=== PATIENT | male | born 1970 | race American Indian/Alaskan Native ===

== ENCOUNTER 2017-05-31 17:12 | Emergency (ER) | payer SELFPAY ==
[2017-05-31] MEDS ORDERED: Sodium Chloride 0.9% 1,000 ML IV ONE (17:46)
[2017-05-31] MEDS ORDERED: Iohexol 240 (50 ml) PO STA (17:46)
[2017-05-31] MEDS ORDERED: Sodium Chloride 0.9% 1,000 ML ONE (18:08)
[2017-05-31] MEDS ORDERED: Iohexol 240 (50 ml) ONE (18:08)
--- NOTE | 2017-05-31 18:14 | C.PDOC ---
History Of Present Illness 47 y/o male c/o intermittent abdominal pain for the last year. Pain is constant , daily that has been worse over the last week. Patient reports that the pain is "bad" today where it is localized to the epigastric region associated with bloating and radiates to the back. Patient's significant other has a hx of gastritis and admits to sharing her meds with the patient, but with no relief. Patient reports soft, green stool and subjective fever. Lying down the patient appears comfortable, but notes the pain is worse when sitting up. Patient notes taking Pepto Bismol. Denies nausea, vomiting, or diarrhea. No chest pain, SOB, or palpitations. Time Seen by Provider: 05/31/17 17:38 Chief Complaint (Nursing): Abdominal Pain History Per: Patient History/Exam Limitations: no limitations Onset/Duration Of Symptoms: Days (Past year), Intermittent Episodes, Persistent Current Symptoms Are (Timing): Still Present Severity: Mild Location Of Pain/Discomfort: Epigastric Radiation Of Pain To:: Back Quality Of Discomfort: "Pain" Associated Symptoms: Fever (Subjective) Last Bowel Movement: Yesterday Additional History Per: Patient Past Medical History Reviewed: Historical Data, Nursing Documentation, Vital Signs Vital Signs: Last Vital Signs Temp 99.5 F 05/31/17 19:47 Pulse 68 05/31/17 19:47 Resp 17 05/31/17 19:47 BP 174/93 H 05/31/17 19:47 Pulse Ox 100 05/31/17 21:45 Family History: States: Unknown Family Hx - Social History Hx Alcohol Use: Yes Hx Substance Use: Yes - Immunization History Hx Tetanus Toxoid Vaccination: No Hx Influenza Vaccination: No Hx Pneumococcal Vaccination: No Review Of Systems Except As Marked, All Systems Reviewed And Found Negative. Constitutional: Positive for: Fever (Subjective) Gastrointestinal: Positive for: Abdominal Pain, Other (Bloating. Greenish, soft stool). Negative for: Nausea, Vomiting, Diarrhea Physical Exam - Physical Exam Appears: Non-toxic, No Acute Distress Skin: Warm, Dry Head: Atraumatic, Normacephalic Oral Mucosa: Moist Chest: Symmetrical Cardiovascular: Rhythm Regular, No Murmur Respiratory: Normal Breath Sounds, No Rales, No Rhonchi, No Wheezing Gastrointestinal/Abdominal: Soft, No Tenderness, No Guarding, No Rebound Back: No CVA Tenderness Neurological/Psych: Oriented x3 ED Course And Treatment - Laboratory Results Result Diagrams: 05/31/17 18:33 05/31/17 18:33 Lab Interpretation: Normal O2 Sat by Pulse Oximetry: 100 (RA) Pulse Ox Interpretation: Normal - CT Scan/US Abdomen w/contrast Other Rad Studies (CT/US): Interpreted By Me, Read By Radiologist CT/US Interpretation: EXAM: CT Abdomen and Pelvis With Intravenous Contrast. EXAM DATE/TIME: 05/31/2017 5:46 PM. CLINICAL HISTORY: 47 years old, male; Pain ; Abdominal pain; Flank; Upper; Additional info: Abd pain. TECHNIQUE: Axial computed tomography images of the abdomen and pelvis with intravenous contrast. All CT. scans at this facility use one or more dose reduction techniques, viz. : automated exposure control;. ma/kV adjustment per patient size (including targeted exams where dose is matched to indication; i.e. head); or iterative reconstruction technique. Coronal and sagittal reformatted images were created and reviewed. CONTRAST: 100 mL of OMNIPAQUE 300 administered intravenously. COMPARISON: There are no prior studies for comparison. FINDINGS: Lower thorax : Heart size is normal. There is a small hiatal hernia. There is a 7 mm right lower lobe. nodule. There is a 5 mm right lower lobe nodule. There is a 12.2 mm left lower lobe nodule. There are. multiple smaller additional pleural- based nodular opacities. There is no focal infiltrate. There is linear. scarring. There are no effusions. ABDOMEN: Liver: There is fatty infiltration of the liver. Gallbladder and bile ducts: unremarkable. Pancreas: Pancreas is mildly atrophic. Spleen: unremarkable. Adrenals: There is nodular thickening of the adrenals. Kidneys and ureters: There is focal right renal scarring. Kidneys and ureters are otherwise. unremarkable. Stomach and bowel: Stomach is incompletely distended. Rotation is normal. There are mildly dilated. small bowel loops in the upper abdomen. There is no small bowel obstruction. Terminal ileum is. unremarkable. There is mild prominence of the appendix. There is no pericecal inflammatory change. Colon is incompletely distended which limits evaluation. Appendix: See above. PELVIS: Bladder: unremarkable. Reproductive : Seminal vesicles and prostate are unremarkable. ABDOMEN and PELVIS: Intraperitoneal space: There is no free air or free fluid. Bones/joints: There are degenerative changes in the osseus structures. Soft tissues: There are focal atrophic changes in both rectus muscles. Vasculature: There are vascular calcifications. Lymph nodes: There is no pathologic adenopathy. IMPRESSION: Multiple small bilateral pulmonary nodules largest in the left lower lobe,. infectious/inflammatory versus neoplastic; fatty liver, no acute solid visceral abnormality; focal ileus,. no obstruction; mild prominence of the appendix but no periappendiceal inflammatory change. Additional findings as described above. Footer: As per Fleischner Society guidelines for follow-up and management of pulmonary nodules: Recommend initial follow-up chest CT at 3, 9 and 24 months. Consider contrast enhanced chest CT,. PET scan and/or biopsy as clinically warranted Reevaluation Time: 21:51 Reassessment Condition: Improved (Patient is in no acute distress at this time.) Medical Decision Making Medical Decision Making: Plans: * CT Abd/pel w/ * Blood labs * Pepcid * Omnipaque * Protonix * IV fluids * UA Disposition Counseled Patient/Family Regarding: Studies Performed, Diagnosis, Need For Followup, Rx Given - Disposition Referrals: [facility] [Outside] Disposition: HOME/ ROUTINE Disposition Time: 21:51 Condition: STABLE Prescriptions: Pantoprazole Sodium [Protonix] 40 mg PO DAILY #20 ect Instructions: Abdominal Pain (ED), Gas and Bloating (ED), Pulmonary Nodules (ED ) Forms: [employer] ([place]) - Clinical Impression Clinical Impression: Abdominal pain, Pulmonary nodules/lesions, multiple - Scribe Statement The provider has reviewed the documentation as recorded by the Scribe Eula tovar All medical record entries made by the Scribe were at my direction and personally dictated by me. I have reviewed the chart and agree that the record accurately reflects my personal performance of the history, physical exam, medical decision making, and the department course for this patient. I have also personally directed, reviewed, and agree with the discharge instructions and disposition.
[2017-05-31 18:39] LABS: BASO # 0.1 K/uL (0.0-0.2); EOS % 0.7 % (0.0-4.0); HEMATOCRIT 47.7 % (35.0-51.0); LYMPH # 1.9 K/uL (1.0-4.3); LYMPH % 31.1 % (20.0-40.0); MEAN CELL VOLUME 93.5 fL (80.0-94.0); MEAN CORPUSCULAR HEMOGLOBIN 31.3 pg (27.0-31.0); MEAN CORPUSCULAR HGB CONC 33.5 g/dL (33.0-37.0); MEAN PLATELET VOLUME 10.8 fL (7.2-11.7); MONO # 0.5 K/uL (0.0-0.8); MONO % 8.7 % (0.0-10.0); RED CELL DISTRIBUTION WIDTH 13.4 % (11.5-14.5); WHITE BLOOD COUNT 6.2 K/uL (4.8-10.8)
[2017-05-31 18:46] LABS: CHLORIDE 99 mmol/L (98-107)
[2017-05-31 18:47] LABS: POTASSIUM 3.8 mmol/L (3.6-5.2); SODIUM 135 mmol/L (132-148)
[2017-05-31 18:49] LABS: BILIRUBIN,TOTAL 1.2 mg/dL (0.2-1.3); CARBON DIOXIDE 24 mmol/L (22-30); GFR AFRICAN-AMERICAN > 60
[2017-05-31 18:50] LABS: ALB/GLOB RATIO 1.5 (1.0-2.1); ALKALINE PHOSPHATASE 92 U/L (38-126); ALT/SGPT 33 U/L (21-72); AST/SGOT 19 U/L (17-59); BLOOD UREA NITROGEN 16 mg/dL (9-20); CALCIUM 9.3 mg/dl (8.6-10.4); GLUCOSE,RANDOM 83 mg/dL (75-110); TOTAL PROTEIN 7.4 g/dL (6.3-8.3)
[2017-05-31 19:58] LABS: RBC URINE 5 /hpf (0-3); URINE BILIRUBIN NEGATIVE (NEGATIVE); URINE BLOOD 1+ (NEGATIVE); URINE COLOR Yellow (YELLOW); URINE GLUCOSE (UA) NORMAL (Normal); URINE KETONE NEGATIVE (NEGATIVE); URINE LEUKOCYTE ESTERASE 1+ Leu/uL (Negative); URINE PROTEIN NEGATIVE (NEGATIVE); URINE UROBILINOGEN NORMAL mg/dL (0.2-1.0); WBC URINE 9 /hpf (0-5)
[2017-05-31] MEDS ORDERED: Iohexol 300 100 ML IJ ONE (20:35)
--- NOTE | 2017-05-31 21:36 | CT ---
EXAM: CT Abdomen and Pelvis With Intravenous Contrast EXAM DATE/TIME: 05/31/2017 5:46 PM CLINICAL HISTORY: 47 years old, male; Pain; Abdominal pain; Flank; Upper; Additional info: Abd pain TECHNIQUE: Axial computed tomography images of the abdomen and pelvis with intravenous contrast. All CT scans at this facility use one or more dose reduction techniques, viz.: automated exposure control; ma/kV adjustment per patient size (including targeted exams where dose is matched to indication; i.e. head); or iterative reconstruction technique. Coronal and sagittal reformatted images were created and reviewed. CONTRAST: 100 mL of OMNIPAQUE 300 administered intravenously. COMPARISON: There are no prior studies for comparison. FINDINGS: Lower thorax: Heart size is normal. There is a small hiatal hernia. There is a 7 mm right lower lobe nodule. There is a 5 mm right lower lobe nodule. There is a 12.2 mm left lower lobe nodule. There are multiple smaller additional pleural-based nodular opacities. There is no focal infiltrate. There is linear scarring. There are no effusions ABDOMEN: Liver: There is fatty infiltration of the liver. Gallbladder and bile ducts: unremarkable Pancreas: Pancreas is mildly atrophic. Spleen: unremarkable Adrenals: There is nodular thickening of the adrenals. Kidneys and ureters: There is focal right renal scarring. Kidneys and ureters are otherwise unremarkable. Stomach and bowel: Stomach is incompletely distended. Rotation is normal. There are mildly dilated small bowel loops in the upper abdomen. There is no small bowel obstruction. Terminal ileum is unremarkable. There is mild prominence of the appendix. There is no pericecal inflammatory change. Colon is incompletely distended which limits evaluation. Appendix: See above. PELVIS: Bladder: unremarkable Reproductive: Seminal vesicles and prostate are unremarkable. ABDOMEN and PELVIS: Intraperitoneal space: There is no free air or free fluid. Bones/joints: There are degenerative changes in the osseus structures. Soft tissues: There are focal atrophic changes in both rectus muscles. Vasculature: There are vascular calcifications. Lymph nodes: There is no pathologic adenopathy. IMPRESSION: Multiple small bilateral pulmonary nodules largest in the left lower lobe, infectious/inflammatory versus neoplastic; fatty liver, no acute solid visceral abnormality; focal ileus, no obstruction; mild prominence of the appendix but no periappendiceal inflammatory change Additional findings as described above. Footer: As per Fleischner Society guidelines for follow-up and management of pulmonary nodules: Recommend initial follow-up chest CT at 3, 9 and 24 months. Consider contrast enhanced chest CT, PET scan and/or biopsy as clinically warranted.
[2017-05-31 21:57] VITALS: TEMP 98.2
[2017-05-31 22:08] VITALS: O2SAT 99
[2017-05-31 23:09] VITALS: BP 170/101; PULSE 90; RESP 17
== END 2017-05-31 23:09 | disposition home or self-care (01) ==
LOC: C.ER 17:12
DX: R10.13 Epigastric pain (principal); R91.8 Other nonspecific abnormal finding of lung field
CPT/HCPCS: 74177; 80053; 81001; 83690; 85025; 96374; 96375; 99285; C9113; J7040; Q9966; Q9967